=== PATIENT | female | born 2000 | race American Indian/Alaskan Native ===

== ENCOUNTER 2022-02-06 17:23 | Observation (INO) | payer OTHER ==
[2022-02-06 19:15] VITALS: BP 106/67
--- NOTE | 2022-02-06 20:23 | Ultrasound Report ---
ULTRASOUND OBSTETRIC LIMITED ULTRASOUND BIOPHYSICAL PROFILE INDICATION / CLINICAL INFORMATION: BPP JOANNA. Clinical Gestational Age (GA) in weeks, days: 36, 6 TECHNIQUE: Transabdominal. COMPARISON: None available. FINDINGS: BREATHING MOVEMENT = 2 GROSS BODY MOVEMENT = 2 TONE = 2 QUALITATIVE AMNIOTIC FLUID VOLUME = 2 TOTAL BIOPHYSICAL SCORE = 8/8 HEART RATE (beats per minute): 139 AMNIOTIC FLUID INDEX (cm) = 10.1 (normal = 7-24 cm) PRESENTATION: Cephalic. ADDITIONAL FINDINGS: None. IMPRESSION: 1. Biophysical Score = 8/8 Signer Name: Ezio Davidson MD Signed: 02/06/2022 8:19 PM Workstation Name: [id number]
[2022-02-06] MEDS ORDERED: LIDOCAINE (2%) 20 MG/1 ML VIAL 20 ML MDV INFILTRATI ONE (22:33)
[2022-02-06] MEDS ORDERED: ACETAMINOPHEN 325 MG TAB PO PRN (22:33)
[2022-02-06] MEDS ORDERED: CARBOPROST TROMETHAMINE 250 MCG/1 ML INJ IM PRN (22:33)
[2022-02-06] MEDS ORDERED: LOPERAMIDE 2 MG CAP PO PRN (22:33)
[2022-02-06] MEDS ORDERED: fentaNYL 100 MCG/2 ML INJ IV PRN (22:33)
[2022-02-06] MEDS ORDERED: ePHEDrine SULFATE 50 MG/1 ML INJ IV PRN (22:33)
[2022-02-06] MEDS ORDERED: BUTORPHANOL 2 MG/1 ML INJ IV PRN (22:33)
[2022-02-06] MEDS ORDERED: AMPICILLIN/NS 2 GM/100 ML 2 GM/100 ML BAG IV ONE (22:33)
[2022-02-06] MEDS ORDERED: ONDANSETRON 4 MG/2 ML INJ IV PRN (22:33)
[2022-02-06] MEDS ORDERED: MINERAL OIL 30 ML ORAL LIQD PO PRN (22:33)
[2022-02-06] MEDS ORDERED: OXYTOCIN 10 UNIT/1 ML INJ IM PRN (22:33)
[2022-02-06] MEDS ORDERED: METHYLERGONOVINE MALEATE 0.2 MG/ML VIAL IM PRN (22:33)
[2022-02-06] MEDS ORDERED: miSOPROStol 200 MCG TAB PR PRN (22:33)
[2022-02-06] MEDS ORDERED: TERBUTALINE 1 MG/1 ML INJ SUB-Q PRN (22:33)
[2022-02-06] MEDS ORDERED: LACTATED RINGERS 1,000 ML IV SCH (22:45)
[2022-02-06] MEDS ORDERED: OXYTOCIN DRIP 30 UNITS/500 ML BAG IV SCH ×2 (23:00)
[2022-02-06 23:05] LABS: Hematocrit 34.7 % (30.3-42.9); Hemoglobin 11.1 gm/dl (10.1-14.3); Mean Corpuscular HGB Conc 32 % (30-34); Mean Corpuscular Volume 79 fl (79-97); Platelet Count 208 K/mm3 (140-440); Red Blood Count 4.41 M/mm3 (3.65-5.03); Red Cell Distribution Width 15.4 % (13.2-15.2)
[2022-02-06 23:55] LABS: Bilirubin,Urine NEG (Negative); Blood,Urine MOD (Negative); Color,Urine Yellow (Yellow); Protein,Urine <15 mg/dL mg/dL (Negative)
[2022-02-07 00:01] LABS: Amphetamine Screen,Urine PRESUMPTIVE NEGATIVE; Benzodiazepines Screen,Urine PRESUMPTIVE NEGATIVE; Cannabinoid Screen,Urine PRESUMPTIVE NEGATIVE; Cocaine Screen,Urine PRESUMPTIVE NEGATIVE; Methadone Screen,Urine PRESUMPTIVE NEGATIVE; Opiate Screen,Urine PRESUMPTIVE NEGATIVE
[2022-02-07 00:58] LABS: Mucus,Urine FEW /HPF
[2022-02-07] MEDS ORDERED: AMPICILLIN/NS 1 GM/50 ML 1 GM/50 ML BAG IV SCH (03:00)
== END 2022-02-07 00:35 | disposition home or self-care (01) ==
LOC: TRG 17:23 → APU 17:25 → TRG 22:33 → APU 22:33 → LD 23:22
PROVIDERS: ADMIT Obstetrics & Gynecology; ATTEND Obstetrics & Gynecology
DX: O62.9 Abnormality of forces of labor, unspecified (principal); O36.8930 Maternal care for other specified fetal problems, third trimester, not applicable or unspecified; O42.913 Preterm premature rupture of membranes, unspecified as to length of time between rupture and onset of labor, third trimester; Z3A.36 36 weeks gestation of pregnancy; Z79.899 Other long term (current) drug therapy
CPT/HCPCS: 36415; 59025; 76815; 76819; 80307; 81001; 84112; 85014; 85018; 85027; 86850; 86900; 86901; 96360; G0378